=== PATIENT | male | born 1975 | race Caucasian/White ===

== ENCOUNTER → 2018-12-04 | Outpatient (REF) ==
--- NOTE | 2018-12-04 10:51 | Diagnostic Imaging Report ---
Indication: Low back pain. AP and lateral views of the lumbar spine are obtained. There appears to be spondylolysis at L5 with grade 1 spondylolisthesis. There is about 7 mm of anterolisthesis of L5 on S1. There are minor osteophytes throughout the lumbar region. There is no significant focal disc space narrowing. Impression: Mild diffuse degenerative findings. There is spondylolysis at L5 with grade 1 spondylolisthesis. Dictated by: Dictated on workstation # [id number]
== END | disposition home or self-care (01) ==
LOC: OCC 10:28 → MERGE 10:28
PROVIDERS: ATTEND Family Medicine
CPT/HCPCS: 72100